=== PATIENT | male | born 1975 | race Caucasian/White ===

== ENCOUNTER 2018-07-30 15:37 | Outpatient (CLI) | payer MEDICAID | END 2018-07-30 23:29 | disposition home or self-care (01) | LOC: RT.S 15:37 | PROVIDERS: ATTEND Nurse Practitioner Family | DX: R07.9 Chest pain, unspecified (principal) | CPT/HCPCS: 93005 ==

== ENCOUNTER 2020-10-07 16:05 | Outpatient (CLI) | payer MEDICAID | END 2020-10-07 16:06 | disposition home or self-care (01) | LOC: SC 16:05 | PROVIDERS: ATTEND Nurse Practitioner Family | DX: Z53.9 Procedure and treatment not carried out, unspecified reason (principal) ==